=== PATIENT | male | born 1960 | race Caucasian/White ===

== ENCOUNTER 2024-05-05 08:38 | Outpatient (RCR) | payer MEDICAID, SELFPAY | END 2024-05-15 23:59 | disposition home or self-care (01) | LOC: SCTC 08:38 | PROVIDERS: PCP Physician Assistant; Referring Provider Physician Assistant; Visit Provider Nurse Practitioner Family | DX: D64.9 Anemia, unspecified (principal); J44.9 Chronic obstructive pulmonary disease, unspecified; F17.210 Nicotine dependence, cigarettes, uncomplicated; R91.1 Solitary pulmonary nodule; F11.11 Opioid abuse, in remission; Z79.891 Long term (current) use of opiate analgesic; Z86.19 Personal history of other infectious and parasitic diseases; I10 Essential (primary) hypertension | CPT/HCPCS: 99212; G0463 ==

== ENCOUNTER 2024-09-02 10:08 | Outpatient (RCR) | payer MEDICAID, SELFPAY | END 2024-09-12 23:59 | disposition home or self-care (01) | LOC: SCTC 10:08 | PROVIDERS: PCP Physician Assistant; Referring Provider Physician Assistant; Visit Provider Nurse Practitioner Family | DX: D64.9 Anemia, unspecified (principal); R91.1 Solitary pulmonary nodule; F17.210 Nicotine dependence, cigarettes, uncomplicated; J44.9 Chronic obstructive pulmonary disease, unspecified; Z86.19 Personal history of other infectious and parasitic diseases | CPT/HCPCS: 99212; G0463 ==